=== PATIENT | female | born 1995 | race Caucasian/White ===

== ENCOUNTER 2024-08-06 11:16 | Emergency (ER) | payer OTHER, SELFPAY ==
--- NOTE | 2024-08-06 11:21 | ED.GENMED ---
ED Provider Triage
<Eugenie Villanueva PA-C - Last Filed: 08/06/24 11:24>
-
Patient seen by provider in Triage?: Seen in Triage
Attestation: A medical screening examination has been initiated by a qualified medical provider. Based on the assessment performed at this time, it has been determined that an emergent medical condition may exist and the patient has been informed
that further medical evaluation and possible additional diagnostic testing may be needed.
HPI: 29yoF here after an aborted suicide attempt last night. Tried to hang herself last night but stopped. Denies injuries from this. In the ED requesting inpatient psychiatric treatment.
GENERAL: Alert , in no apparent distress
EYE: No visual abnormalities.
NECK: Trachea midline
ENT: No visible abnormalities.
LUNGS: No acute respiratory distress
NEUROLOGICAL: Alert and oriented
SKIN: Skin intact. No visible changes.
MUSCULOSKELETAL: Moving extremities normally
PSYCH: Normal and appropriate interaction.
This is a medical evaluation conducted in person to initiate diagnostic evaluation and provide initial therapeutics. Please see further documentation by the treating clinician.
Crisis consult and 1:1 ordered. She was taken immediately back to an ED exam room for evaluation.
History of Present Illness
<Eugenie Villanueva PA-C - Last Filed: 08/06/24 11:24>
General
Chief Complaint: Crisis Evaluation
Time Seen by Provider: 08/06/24 11:35
<Lynn Flores DO - Last Filed: 08/06/24 13:42>
History of Present Illness
History of Present Illness:
29-year-old female with history of bipolar disorder and depression presenting to the emergency department for suicidal ideations. Patient reports last night she tried to hang herself with a blanket, however stopped herself at the end. She reports
she has not passed out. She reports that she started to see black. She presents seeking help for suicidal ideations. Reports history of suicidal attempt in the past. Denies any acute medical complaints. Denies any pain in her neck. Denies
chest pain, difficulty breathing, abdominal pain or additional acute medical complaints
Past History
<Eugenie Villanueva PA-C - Last Filed: 08/06/24 11:24>
Past History
ED Past Medical History: Asthma and Psychiatric (Bipolar disorder)
ED Past Surgical History: Other (ENT)
Social History
Drug: None
Phy Exam
<Lynn Flores DO - Last Filed: 08/06/24 13:42>
Physical Exam
Physical Exam:
General: Well-appearing, no clinical signs of dehydration, nontoxic and in no acute distress
HEENT: protecting airway
Neck: appears supple, no tenderness, no signs of trauma or ligature perez
CV: Normal heart rate
Resp: No accessory muscle use, no increased work of breathing
Abd: No distention
Extremities: No deformities, no swelling
Neuro: alert, no focal neurologic deficit
: deferred
Rectal: deferred
Psych: Normal affect
Skin: Intact
Course
<Eugenie Villanueva PA-C - Last Filed: 08/06/24 11:24>
Orders/Labs/Results
Orders:
Orders
08/06/24 11:23
1:1 Observation - Suicide/ Violent Behavior As Directed
Crisis Consult Urgent
Reason for Consult: Suicide attempt
08/06/24 11:26
1:1 Observation - Suicide/ Violent Behavior As Directed
08/06/24 12:09
, Urine Qualitative Screen [HCG, Urine Qualitative Screen] Urgent
Urinalysis Urgent
08/06/24 12:10
Test Result ONCE
Vital Signs
Initial and Last Documented VS:
Initial Vital Signs
Pulse Resp BP Pulse Ox
74 18 121/86 98
08/06/24 11:23 08/06/24 11:23 08/06/24 11:23 08/06/24 11:23
Last Documented Vital Signs
Pulse Resp BP Pulse Ox
74 18 121/86 98
08/06/24 11:23 08/06/24 11:23 08/06/24 11:23 08/06/24 11:23
<Lynn Flores DO - Last Filed: 08/06/24 13:42>
Orders/Labs/Results
Orders:
Orders
08/06/24 11:23
1:1 Observation - Suicide/ Violent Behavior As Directed
Crisis Consult Urgent
Reason for Consult: Suicide attempt
08/06/24 11:26
1:1 Observation - Suicide/ Violent Behavior As Directed
08/06/24 12:09
, Urine Qualitative Screen [HCG, Urine Qualitative Screen] Urgent
Urinalysis Urgent
08/06/24 12:10
Test Result ONCE
Vital Signs
Initial and Last Documented VS:
Initial Vital Signs
Pulse Resp BP Pulse Ox
74 18 121/86 98
08/06/24 11:23 08/06/24 11:23 08/06/24 11:23 08/06/24 11:23
Last Documented Vital Signs
Pulse Resp BP Pulse Ox
74 18 121/86 98
08/06/24 11:23 08/06/24 11:23 08/06/24 11:23 08/06/24 11:23
<Lynn Flores, DO - Last Filed: 08/06/24 13:42>
MDM/Problems Addressed
MDM/Problems Addressed:
29-year-old female with history of bipolar disorder and depression presenting for suicidal attempt and suicidal thoughts. Vital signs are normal.
On exam patient is well-appearing, no acute distress or discomfort. No signs of trauma to the neck, without concern for any vascular or neck injury from patient suicidal attempt. Patient will be on a 201 suicidal ideations. Feel patient is
medically cleared for psychiatric evaluation. Crisis is involved.
<Lynn Flores DO - Last Filed: 08/06/24 13:42>
*Critical Care Note
Total Time (30-74mins, 75-104mins- exclusive of procedures): Not Applicable
ED Attending Note
<Eugenie Villanueva PA-C - Last Filed: 08/06/24 11:24>
-
Portions of this chart may have been created with voice recognition software.� Occasional wrong word or��sound alike� substitutions may have occurred due to the inherent limitations of voice recognition software.
Discharge Plan
Departure
Prescriptions:
No Action
tamsulosin 0.4 MG capsule
0.4 mg PO DAILY Qty: 15 0RF
Referrals:
UNKNOWN,NO INTERVIEW [Family Provider] -
Interventions
Interventions:
*Risk Screen - Suicide Last Done: 08/06/24 11:25
*General Assessment Last Done: 08/06/24 11:25
*Neglect/Abuse Screening Last Done: 08/06/24 11:25
*ED COVID-19 Vaccine History Last Done: 08/06/24 11:49
ED-Psychological Assessment Last Done: 08/06/24 11:49
Discharge Date and Time
Print Language: ALGERIAN
[2024-08-06 11:23] VITALS: BP 121/86
[2024-08-06 14:00] VITALS: BP 118/72
[2024-08-06 14:26] LABS: Urine Albumin Negative (Neg - Trace); Urine Bilirubin Negative (Negative); Urine Character Slightly Cloudy (Clear); Urine Color Yellow; Urine Glucose Negative (Negative); Urine Ketone Negative (Negative); Urine Leukocyte 2+ (Negative); Urine Nitrite Negative (Negative); Urine Occult Blood Negative (Negative); Urine Urobilinogen Negative (Neg - 1+)
[2024-08-06 14:34] LABS: HCG, Urine Qualitative Screen Negative
[2024-08-06 14:43] LABS: Urine Amorphous Seen; Urine Squamous Cell >30 /LPF (Few)
[2024-08-06 14:45] LABS: Urine Red Blood Cell 0-2 /HPF (0-2); Urine White Cell 40-50 /HPF (0-5)
[2024-08-06 14:48] LABS: Urine Bacteria Few (Negative)
[2024-08-06 15:27] LABS: Amphetamines Negative (Negative); Barbiturates Negative (Negative); Benzodiazepines Negative (Negative); Buprenorphine Negative (Negative); Cocaine Negative (Negative); Marijuana Negative (Negative); Methadone Negative (Negative); Methamphetamines Negative (Negative); Opiates Negative (Negative); Phencyclidine Negative (Negative); Tricyclic Antidepressants Negative (Negative)
--- NOTE | 2024-08-06 20:49 | EDRN ---
This Patient was not cared for by this RN and was not discharged by this RN. This RN called the crisis department for discharge time.
== END 2024-08-06 18:55 ==
LOC: EMR 11:16
PROVIDERS: EMERGENCY PHYSICIAN Student in an Organized Health Care Education/Training Program
DX: T14.91XA Suicide attempt, initial encounter (principal); X83.8XXA Intentional self-harm by other specified means, initial encounter; F31.9 Bipolar disorder, unspecified; F32.A Depression, unspecified; J45.909 Unspecified asthma, uncomplicated; Z91.51 Personal history of suicidal behavior; Z91.048 Other nonmedicinal substance allergy status
CPT/HCPCS: 99285; 80306; 81003; 81015; 81025